=== PATIENT | female | born 1965 | race Caucasian/White ===

== ENCOUNTER → 2018-02-28 08:03 | Outpatient (POV) | payer BC, SELFPAY | PROVIDERS: Visit Provider Dentist | DX: Z00.00 Encounter for general adult medical examination without abnormal findings (principal) ==

== ENCOUNTER 2019-12-21 10:50 | Emergency (ER) | payer BC, SELFPAY ==
[2019-12-21 11:05] VITALS: BP 149/90; PULSE 76; RESP 20; TEMP 36.3; O2SAT 97; BMI 31.3
--- NOTE | 2019-12-21 11:18 | CT_ITS ---
PROCEDURE: CT ABDOMEN PELVIS WO CON CLINICAL INDICATION: RT FLANK PAIN Right flank pain with nausea COMPARISON: No exams were available for comparison TECHNIQUE: Axial images obtained with sagittal and coronal reformats. All CT scans at the facility use one or more dose reduction, viz: automated exposure control, ma/kV adjustment per patient size (including targeted exams where dose is matched to indication, i.e. head), or iterative reconstruction technique. FINDINGS: LOWER THORAX: No acute finding ABDOMEN & PELVIS: Prior cholecystectomy. There is a small hiatal hernia. The liver, adrenal glands, pancreas, and kidneys have an unremarkable unenhanced appearance. There is mild splenomegaly at 14 cm. No evidence of appendicitis, intestinal obstruction, or free air. There are few scattered colonic diverticula but no evidence of diverticulitis. There is a complex septated cystic left adnexal mass at 4.5 cm. No cul-de-sac fluid. There is mild wedging of T10 and T12 which may be chronic. There is 5 mm anterolisthesis of L4 on L5 and there is suspected old fracture of the coccyx. There are degenerative changes of the lumbar spine IMPRESSION: 1. No evidence of appendicitis. 2. No renal or ureteral calculi 3. 4.5 cm complex cystic left adnexal mass. Complex left ovarian cyst versus neoplasm is considered. Please see pelvic ultrasound for further description. Dictated by: Noel Lutz MD 12/22/2019 06:14 Electronically signed by Noel Lutz MD in [place] 12/22/2019 06:14
[2019-12-21 11:23] LABS: Microscopic, Urine URINE MICROSCOPIC (MICROSCOPIC)
[2019-12-21 11:24] LABS: Basophils % 0.4 % (0.1-2.0); Eosinophils # 0.1 K/mm3 (0.0-0.4); Eosinophils % 1.7 % (0.1-12.0); Hematocrit 43.3 % (37.0-47.0); Hemoglobin 14.7 g/dL (12.2-16.2); Lymphocytes # 1.4 K/mm3 (0.7-4.5); Lymphocytes % 20.3 % (10-50); Mean Corpuscular HGB Conc 33.9 g/dL (31.8-35.4); Mean Corpuscular Hemoglobin 30.1 pg (27.0-31.2); Mean Corpuscular Volume 88.7 fl (81-99); Mean Platelet Volume 7.6 fl (7.4-10.4); Monocytes # 0.2 K/mm3 (0.1-1.0); Monocytes % 3.4 % (1.7-9.3); Neutrophils # 5.1 K/mm3 (1.8-7.8); Neutrophils % 74.1 % (37.0-80.0); Platelet Count 276 K/mm3 (142-424); Red Blood Count 4.88 M/mm3 (4.20-5.40); Red Cell Distribution Width 12.5 % (11.5-17.5); White Blood Count 6.9 K/mm3 (4.8-10.8)
[2019-12-21 11:25] LABS: Appearance,Urine CLEAR (Clear); Bilirubin,Urine Negative (Negative); Blood, Urine TRACE-I (Negative); Color,Urine YELLOW (Yellow); Glucose,Urine (UA) Negative (Negative); Ketones,Urine Negative (Negative); Leukocyte Esterase,Urine Negative (Negative); Nitrate,Urine Negative (Negative); PH,Urine 5.5 (5.0-8.5); Protein,Urine Negative (Negative); Urobilinogen,Urine 0.2 EU/dl (0.2)
[2019-12-21 11:29] LABS: Chloride 106 mmol/L (98-107)
[2019-12-21 11:29] LABS: Urine Pregnancy, HCG Qual. Negative (Negative)
[2019-12-21 11:30] LABS: Potassium 3.8 mmoL/L (3.5-5.1); Sodium 142 mmol/L (136-145)
[2019-12-21 11:32] LABS: Alanine Aminotransferase 28 U/L (12-78); Amylase 82 U/L (30-110); Anion Gap 13.8 mEq/L (5-15); Aspartate Amino Transferase 35 U/L (14-36); Blood Urea Nitrogen 12 mg/dl (7-17); Carbon Dioxide 26 mmol/L (22.0-30.0); Creatinine Clearance Estimated 91 mL/min (50-200); Estimated Glomerular Filt Rate 58 ml/min (>60); GFR (African American) 70 ML/MIN (>60)
[2019-12-21 11:33] LABS: Albumin Level 4.7 g/dl (3.5-5.0); Albumin/Globulin Ratio 1.4 (1.1-1.8); Alkaline Phosphatase 85 U/L (38-126); Bilirubin,Total 0.9 mg/dl (0.2-1.3); Calcium 9.5 mg/dl (8.4-10.2); Globulin 3.3 g/dL (1.3-3.2); Glucose 124 mg/dl (74-100); Lipase 126 U/L (23-300)
[2019-12-21 11:38] LABS: Amorphous Sediment,Urine 1+ /lpf; Squamous Epithelial Cell,Urine Occasional #/hpf (0-5); WBC,Urine Occasional #/hpf (0-3)
--- NOTE | 2019-12-21 12:08 | HMH.EDABDPAI ---
ED Disposition Clinical Impression: Abdominal pain, Ovarian cyst Disposition: Home, Self-Care Condition on Discharge: Good Instructions: DI for Acute Abdomen Additional Instructions: Please follow-up with RN OFFICE for evaluation of the left ovarian cystic structure Referrals: Provider,Referral, [Primary Care Provider] - - Critical Care Critical Care Time: No Attestation: On 12/21/19, the high probability of a clinically significant, sudden or life threatening deterioration of the following system(s) required my full and direct attention, intervention and personal management. The time I documented below is in addition to time spent performing reported procedures but includes the following listed in this critical care notation. Medical Decision Making - Medical Records Medical records reviewed: Yes: I reviewed the patient's medical records. - Yaya Inquiry Pt receiving controlled substance: No Vital Signs: 12/21/19 11:05 Temperature 97.4 F L Temperature Source Oral Pulse Rate [Right Radial] 76 Respiratory Rate 20 Blood Pressure [Right Arm] 149/90 H Blood Pressure Mean [Right Arm] 109 Blood Pressure Source [Right Arm] Automatic Cuff Blood Pressure Position [Right Arm] Sitting 02 Sat by Pulse Oximetry 97 Oxygen Delivery Method Room Air - Lab Data Lab results reviewed: Yes: I reviewed the patient's lab results. Lab Results 12/21/19 11:05: Urine Color Yellow, Urine Appearance Clear, Urine pH 5.5, Ur Specific [place] 1.020, Urine Protein Negative, Urine Glucose (UA) Negative, Urine Ketones Negative, Urine Blood Trace-i, Urine Nitrate Negative, Urine Bilirubin Negative, Urine Urobilinogen 0.2, Ur Leukocyte Esterase Negative, Urine RBC 3-5, Urine WBC Occasional, Ur Squamous Epith Cells Occasional, Ur Transition Epith Cell 3-5, Amorphous Sediment 1+, Urine Bacteria None 12/21/19 11:05: Urine HCG, Qual Negative 12/21/19 11:16: WBC 6.9, RBC 4.88, Hgb 14.7, Hct 43.3, MCV 88.7, MCH 30.1, MCHC 33.9, RDW 12.5, Plt Count 276, MPV 7.6, Neut % (Auto) 74.1, Lymph % (Auto) 20.3, [place] % (Auto) 3.4, Eos % (Auto) 1.7, Baso % (Auto) 0.4, Neut # (Auto) 5.1, Lymph # (Auto) 1.4, [place] # (Auto) 0.2, Eos # (Auto) 0.1, Baso # (Auto) 0.0 12/21/19 11:16: Sodium 142, Potassium 3.8, Chloride 106, Carbon Dioxide 26, Anion Gap 13.8, BUN 12, Creatinine 1.00, Estimated Creat Clear 91, Estimated GFR 58 L, Est GFR ( Amer) 70, Glucose 124 H, Calcium 9.5, Total Bilirubin 0.9, AST 35, ALT 28, Alkaline Phosphatase 85, Total Protein 8.0, Albumin 4.7, Globulin 3.3 H, Albumin/Globulin Ratio 1.4, Amylase 82, Lipase 126 Result diagrams: 12/21/19 11:16 12/21/19 11:16 Orders (Tests/Meds): ED MEDICATIONS Discontinued Medications Generic Name Dose Route Start Last Admin Trade Name Freq PRN Reason Stop Dose Admin Sodium Chloride 1,000 mls @ 999 mls/hr 12/21/19 11:18 12/21/19 11:20 Sod Chlor 0.9% 1000ml Bag IV 12/21/19 12:18 999 mls/hr .Q1H1M ONE Administration Ketorolac Tromethamine 30 mg 12/21/19 11:18 12/21/19 11:20 Toradol 30mg/Ml Vial IV 12/21/19 11:19 30 mg ONCE ONE Administration Ondansetron HCl 4 mg 12/21/19 11:18 12/21/19 11:20 Zofran 4mg/2ml Vial IV 12/21/19 11:19 4 mg ONCE ONE Administration ORDERS Category Date Time Status CT abdomen pelvis wo con Stat Cat Scan 12/21/19 11:18 Taken US transvaginal Stat Exams 12/21/19 13:08 Taken - CT Data CT Scan: Abdomen, Pelvis Time Received: 14:[address] Reviewed: Yes: I have reviewed the patient's CT results, I have viewed the radiologist's interpretation Preliminary Findings: Abnormal (Patient has an ovarian mass on the left it could be a cyst could be torsion or could be neoplastic) - US Data US Images: Pelvis ED US Reviewed: Yes: I have viewed radiologist's interpretation Preliminary Findings: Normal/NAD (Patient has no fluid in the cul-de-sac patient does have an enlarged ovary on the left no evidence of torsion) Abdominal Pain HPI
--- NOTE | 2019-12-21 13:08 | US_ITS ---
PROCEDURE: US TRANSVAGINAL CLINICAL INDICATION: pain Right lower quadrant pain, septated cystic mass seen on recent CT scan, COMPARISON: CT ABDOMEN PELVIS WO CON from 12/21/2019 FINDINGS: The uterus is anteverted and measures 5 x 3 x 4 cm with a combined endometrial thickness of 5 mm. There is a nabothian cyst which measures 9 x 7 mm. The There is a complex septated cystic mass in the left adnexal region measuring 5 x 3.5 cm containing multiple septations with some thickening of the septations and internal areas of slight increased echogenicity. Blood flow is present. No cul-de-sac fluid apparent. The right ovary is unremarkable at 1.5 cm. IMPRESSION: Complex cystic lesion left adnexal area consistent with complex cystic involvement of the left ovary. There is blood flow present. Differential diagnosis includes neoplasm versus complex ovarian cyst. Consider nonemergent MRI without and with contrast for further evaluation. Dictated by: Noel Lutz MD 12/22/2019 06:02 Electronically signed by Noel Lutz MD in [place] 12/22/2019 06:02
--- NOTE | 2019-12-21 13:23 | PC.NURSE ---
Pt to US
[2019-12-21 14:52] VITALS: BP 120/85; PULSE 80; RESP 20; TEMP 36.8; O2SAT 98
== END 2019-12-21 14:53 | disposition home or self-care (01) ==
PROVIDERS: Emergency Provider Family Medicine
DX: N83.201 Unspecified ovarian cyst, right side (principal)
CPT/HCPCS: 74176; 76830; 80053; 81001; 81025; 82150; 83690; 85025; 96365; 96375; 99283; J2405

== ENCOUNTER → 2019-12-25 12:47 | Outpatient (CLI) | payer BC, SELFPAY ==
[2019-12-26 11:21] LABS: Cancer Antigen (CA) 125 19.8 U/mL (0.0-38.1)
== END ==
PROVIDERS: Visit Provider Obstetrics & Gynecology
DX: R10.9 Unspecified abdominal pain (principal); N83.209 Unspecified ovarian cyst, unspecified side
CPT/HCPCS: 36415; 86316

== ENCOUNTER → 2020-01-05 07:12 | Outpatient (CLI) | payer BC, SELFPAY ==
[2020-01-05 07:40] LABS: Blood Urea Nitrogen 22 mg/dl (7-17); Estimated Glomerular Filt Rate 74 ml/min (>60); GFR (African American) 90 ML/MIN (>60)
--- NOTE | 2020-01-05 07:49 | MR_ITS ---
PROCEDURE: MR PELVIS WO/W CON CLINICAL INDICATION: ADNEXAL MASS Adnexal mass, follow-up complex left ovarian cyst the COMPARISON: CT ABDOMEN PELVIS WO CON from 12/21/2019 US TRANSVAGINAL from 12/21/2019 TECHNIQUE: Routine multiplanar multi echo sequences are performed without and with gadolinium enhancement. FINDINGS: There is a multi-septated cystic left adnexal mass which measures 4.7 cm cephalad caudad, 4.4 cm transverse, and 3.8 cm AP. This contains multiple thin septations with some enhancement of the septations. There is some nodularity noted in the mid aspect of this lesion without significant enhancement. No obvious fat within the lesion. The no obvious hemorrhagic components. The right adnexa has an unremarkable appearance. No obvious ascites or adenopathy. IMPRESSION: 4.7 x 4.4 cm complex cystic lesion of the left ovary containing multiple septations with some minimal enhancement of the septations. Differential diagnosis would include complex benign ovarian cyst, ovarian cystadenoma the or cystadenofibroma. Cystadenocarcinoma is included in the differential diagnosis. Cystic metastasis to the ovary is also consideration. Gynecological consult is suggested.. Dictated by: Noel Lutz MD 01/06/2020 10:20 Electronically signed by Noel Lutz MD in [facility] 01/06/2020 10:20
--- NOTE | 2020-01-05 07:49 | MR_ITS ---
PROCEDURE: MR THORACIC SPINE WO CON CLINICAL INDICATION: WEDGE COMPRESSION FX T9-T10 Severe mid back pain COMPARISON: CT ABDOMEN PELVIS WO CON from 12/21/2019 TECHNIQUE: Routine multiplanar multi echo sequences are performed without gadolinium enhancement. FINDINGS: There is normal alignment. There is mild dextroscoliosis of the thoracic spine. There is mild degenerative disc disease at T7-T8-T8-T9 T9-T10 and T10-T11. There is minimal wedge compression changes involving the T9 vertebral body with loss of height anteriorly of approximately 15 percent. A Schmorl's node is present in the superior endplate of T9 vertebral body. These findings appear chronic. No retropulsion. Minimal wedging also noted at T11 which appears chronic with a Schmorl's node along the superior endplate without retropulsion. There is a small T2 hyperintensity involving the left aspect of the T8 vertebral body at 4 mm nonspecific. No disc herniation or bony destructive process. No canal stenosis. No paraspinal mass IMPRESSION: 1. Mild chronic wedge compression changes at T9 and T11 with mild thoracic spondylosis. 2. Mild dextroscoliosis of the midthoracic spine. 3. No acute finding. Dictated by: Noel Lutz MD 01/06/2020 09:48 Electronically signed by Noel Lutz MD in [facility] 01/06/2020 09:48
== END ==
PROVIDERS: PCP Internal Medicine Adolescent Medicine; Visit Provider Internal Medicine Adolescent Medicine
DX: S22.070A Wedge compression fracture of T9-T10 vertebra, initial encounter for closed fracture (principal); N94.89 Other specified conditions associated with female genital organs and menstrual cycle
CPT/HCPCS: 36415; 72146; 72197; 82565; 84520; A9576

== ENCOUNTER 2020-01-22 09:00 | Outpatient (RCR) | payer BC, SELFPAY ==
--- NOTE | 2020-01-08 14:48 | HMH.PTOPEV ---
PT Outpatient Evaluation Rehab PT Outpatient Evaluation Start: 01/08/20 14:04 Freq: Status: Active Protocol: Document 01/08/20 14:39 PHOALEXEY (Rec: 01/08/20 14:48 PHORNE [id number]) Electronically Signed By Kristopher Hale, PT 01/08/20 14:39 Outpatient Therapy Subjective History Subjective History Pt is 54 yowf who presents with c/o mid-back pain x ~ 1-2 mos with insidious onset of symptoms. She reports pain was intense burning only on the R flank. She reports meds have greatly decreased her symptoms , but she continues to have some pain intermittently. MRI showed mild wedging of T9 and T11 vertebrae. Incidental finding of R ovarian cyst noted, Pt states, That's not causing any of my pain. Chief Complaint Pain Symptom Type Burning Symptoms Relieved By Prescription Meds Symptoms Aggravated By Standing,Walking Prior Functional Limitations None Current Functional Limitations Sleeping,Standing,Walking Symptom Description Intermittent Level of pain today (0-10) 0 Pain scale - at its worst (0-10) 6 Lumbopelvic Eval Palapation tenderness right thoracic spinal tenderness Yes: 2/4 paraspinal tenderness Yes: 2/4 Accessory Movement T-spine Vertebrae Accessory Movements Central P/A Ramsey,Right P/A that Elicit Symptoms Ramsey T10 right T11 right T12 right Range of Motion Lumbar Spine ROM Reason Not Measured Within Functional Limits Manual Muscle Test Bilateral Knee Extension Strength Grade 5 Normal Knee Flexion Strength Grade 5 Normal Hip Flexion Strength Grade 5 Normal Hip Abduction Strength Grade 5 Normal Hip Adduction Strength Grade 5 Normal Extensor Hallucis Longus Strength Grade 5 Normal Ankle Dorsiflexion Strength Grade 5 Normal Gastronemius/Soleus Strength Grade 5 Normal Special Tests Hip Scouring (Quadrant) Test Negative Left,Negative Right Hip Murray (VEENA) Test Negative Left,Negative Right Sciatic Nerve Tension Test Negative Left,Negative Right Outpatient Therapy Assessment Impairments Problems/Impairmments Palpation Tenderness,Impaired Walking,Impaired Standing, Subjective C/O Pain,Impaired Self Care/Self Management Prognosis Rehab Potential Good Clinical Impression Consistent w
== END 2020-01-22 09:05 | disposition home or self-care (01) ==
LOC: PT 09:00
PROVIDERS: PCP Internal Medicine Adolescent Medicine; Visit Provider Internal Medicine Adolescent Medicine
DX: M54.14 Radiculopathy, thoracic region (principal)
CPT/HCPCS: 97010; 97014; 97110; 97140; 97163; 97530; G0283

== ENCOUNTER → 2020-06-04 13:17 | Outpatient (CLI) | payer BC, SELFPAY ==
[2020-06-04 13:47] LABS: Basophils % 0.7 % (0.1-2.0); Eosinophils # 0.1 K/mm3 (0.0-0.4); Eosinophils % 1.7 % (0.1-12.0); Hematocrit 45.4 % (37.0-47.0); Hemoglobin 14.4 g/dL (12.2-16.2); Lymphocytes # 1.7 K/mm3 (0.7-4.5); Lymphocytes % 28.1 % (10-50); Mean Corpuscular HGB Conc 31.8 g/dL (31.8-35.4); Mean Corpuscular Hemoglobin 29.2 pg (27.0-31.2); Mean Corpuscular Volume 91.6 fl (81-99); Mean Platelet Volume 7.1 fl (7.4-10.4); Monocytes # 0.3 K/mm3 (0.1-1.0); Monocytes % 4.3 % (1.7-9.3); Neutrophils # 3.9 K/mm3 (1.8-7.8); Neutrophils % 65.3 % (37.0-80.0); Platelet Count 241 K/mm3 (142-424); Red Blood Count 4.95 M/mm3 (4.20-5.40); Red Cell Distribution Width 12.5 % (11.5-17.5)
[2020-06-04 14:41] LABS: Hemoglobin A1C 5.4 % (4.0-6.0)
[2020-06-04 15:50] LABS: Alanine Aminotransferase 22 U/L (12-78); Albumin Level 4.4 g/dl (3.5-5.0); Albumin/Globulin Ratio 1.4 (1.1-1.8); Alkaline Phosphatase 102 U/L (38-126); Anion Gap 10.5 mEq/L (5-15); Aspartate Amino Transferase 31 U/L (14-36); Bilirubin,Total 0.6 mg/dl (0.2-1.3); Blood Urea Nitrogen 9 mg/dl (7-17); Calcium 9.4 mg/dl (8.4-10.2); Carbon Dioxide 30 mmol/L (22.0-30.0); Chloride 104 mmol/L (98-107); Chol/HDL Ratio 4.2 (1-3.5); Cholesterol 190 mg/dl (140-200); Estimated Glomerular Filt Rate 65 ml/min (>60); GFR (African American) 78 ML/MIN (>60); Globulin 3.1 g/dL (1.3-3.2); Glucose 91 mg/dl (74-100); HDL Cholesterol 45 mg/dl (40-60); Potassium 4.5 mmoL/L (3.5-5.1); Sodium 140 mmol/L (136-145); Total Protein,Serum 7.5 g/dl (6.3-8.2); Triglycerides 161 mg/dl (30-150); VLDL Cholesterol 32 mg/dL (0-40)
[2020-06-04 16:01] LABS: Direct LDL Cholesterol 115.69 mg/dL (100-129)
[2020-06-04 16:07] LABS: 25-OH Vitamin D, Total 35.8 ng/mL (30-100)
== END ==
PROVIDERS: Visit Provider Internal Medicine Adolescent Medicine
DX: I10 Essential (primary) hypertension (principal); E55.9 Vitamin D deficiency, unspecified
CPT/HCPCS: 36415; 80053; 80061; 82306; 83036; 85025

== ENCOUNTER → 2020-06-07 09:08 | Outpatient (CLI) | payer BC, SELFPAY ==
--- NOTE | 2020-06-07 09:37 | MM_ITS ---
PROCEDURE: MM DIG SCREENING MAMM BI W/CAD Digital Breast Tomosynthesis Included CLINICAL INDICATION: Routine Screening Mammogram There is a history of breast cancer in the patient's 2 maternal cousins 1 diagnosed before menopause the other diagnosed after menopause. COMPARISON: Outside digital mammograms 07/12/2015 and 03/09/2014 TECHNIQUE: Standard MLO and CC views were obtained along with armaan synthesis views and CAD FINDINGS: Scattered fibroglandular densities are seen in both breasts. There is stable asymmetric glandular elements upper-outer quadrant right breast basically unchanged in appearance from previous studies 2013 and 2014. There is a stable tiny nodular density near the axillary tail left breast. There is no suspicious lesion and no suspicious microcalcifications. IMPRESSION: Fibrofatty parenchyma with no suspicious lesions seen BI-RAD Category: 2 Benign Finding(s) FOLLOW-UP: 1YR 1 Year Follow-up (A letter has been sent to the patient regarding results of the study.) Dictated by: Dr. Martin Hurley MD 06/12/2020 16:57 Dr. Martin Hurley MD in [place] 06/12/2020 16:57
== END ==
PROVIDERS: PCP Internal Medicine Adolescent Medicine; Visit Provider Obstetrics & Gynecology
DX: Z12.31 Encounter for screening mammogram for malignant neoplasm of breast (principal)
CPT/HCPCS: 77063; 77067

== ENCOUNTER → 2020-07-09 12:51 | Outpatient (CLI) | payer BC, SELFPAY ==
--- NOTE | 2020-07-09 12:51 | US_ITS ---
PROCEDURE: US TRANSVAGINAL CLINICAL INDICATION: 6 mo f/u- left ovarian mass COMPARISON: CT CT ABDOMEN PELVIS WO CON from 12/21/2019 US US TRANSVAGINAL from 12/21/2019 MR MR PELVIS WO/W CON from 01/05/2020 FINDINGS: UTERUS: 5cm x 4cmx 3cm with a combined endometrial thickness of 1.3mm LEFT OVARY: [id number] with a volume of 33.6ml. RIGHT OVARY: [id number] with a volume of 2ml. There is a 1 cm nabothian cyst Complex cystic involvement once again noted involving the left ovary which is enlarged measuring 5 3 4 cm. Multiple septations are present some of which are slightly thickened. No ascites is apparent. Right ovary has an unremarkable appearance. Blood flow is to both ovaries. IMPRESSION: Complex cystic left ovarian mass multiple septations and some thickening of the wall. Overall, the size is not significantly changed. There may be some increase in thickening/solid component inferiorly. Cystadenoma or cystadenocarcinoma is considered. Dictated by: Noel Lutz MD 07/09/2020 17:15 Noel Lutz MD in [place] 07/09/2020 17:15
== END ==
PROVIDERS: PCP Internal Medicine Adolescent Medicine; Visit Provider Obstetrics & Gynecology
DX: N83.202 Unspecified ovarian cyst, left side (principal)
CPT/HCPCS: 76830

== ENCOUNTER → 2020-09-07 17:15 | Outpatient (CLI) | payer BC, SELFPAY ==
--- NOTE | 2020-09-07 | XR_ITS ---
PROCEDURE: XR LUMBAR SPINE MIN 4V CLINICAL INDICATION: Pain COMPARISON: CT CT ABDOMEN PELVIS WO CON from 12/21/2019 FINDINGS: Normal alignment. No fracture or dislocation. There is mild degenerative disc disease at L3-L4 L4-5 and L5-S1. There is 7 mm anterolisthesis of L4 on. Mild facet arthritic changes are present at L4-L5 and S1. Facet hypertrophy noted at these levels with sclerosis. Other findings:None. IMPRESSION: Degenerative disc disease with facet arthritic change Dictated by: Noel Lutz MD 09/08/2020 06:51 Noel Lutz MD in [place] 09/08/2020 06:51
--- NOTE | 2020-09-07 | XR_ITS ---
PROCEDURE: XR THORACIC SPINE 3V CLINICAL INDICATION: Pain COMPARISON: MR MR THORACIC SPINE WO CON from 01/05/2020 FINDINGS: No fracture or dislocation. No lytic or blastic change. There is normal mineralization. There is mild midthoracic scoliosis convex right. Degenerative disc disease is present in the midthoracic spine with lateral osteophytes at T8, T9, and T10 Other findings:None. IMPRESSION: Degenerative changes, no acute finding. Dictated by: Noel Lutz MD 09/08/2020 06:53 Noel Lutz MD in [place] 09/08/2020 06:53
== END ==
PROVIDERS: PCP Internal Medicine Adolescent Medicine; Visit Provider Internal Medicine Adolescent Medicine
DX: M54.42 Lumbago with sciatica, left side (principal); M54.6 Pain in thoracic spine
CPT/HCPCS: 72072; 72110

== ENCOUNTER 2020-10-18 16:00 | Outpatient (RCR) | payer BC, SELFPAY ==
--- NOTE | 2020-09-20 16:54 | HMH.PTOPEV ---
PT Outpatient Evaluation Rehab PT Outpatient Evaluation Start: 09/20/20 16:16 Freq: Status: Active Protocol: Document 09/20/20 16:16 RADHASHAWN (Rec: 09/20/20 16:54 FABY [id number]) Electronically Signed By Ede Diaz PT 09/20/20 16:16 Outpatient Therapy Subjective History Subjective History This is the initial Physical Therapy evaluation for Samantha Dominique. Pt is a 55 y/o female referred to PT for c/o LBP and LLE pain and paresthesia. Pt reports in March of 2020 she was stepping down steps, when she steppeddown she rolled her ankle. Pt reports she fell landing on her L side . Pt reports she was more concerned w/ her ankle at that time. Pt reports ~ 1 week after fall she was still having LLE and LBP pain. Pt reprots she just felt it was soreness from the fall and it would get better. Pt reports pain has not gotten better. Pt reports pain travels from L Lumbar area, into L buttocks, L lateral thigh, crosses front of knee and travels into big toe on L. Chief Complaint Pain,Stiff,Paresthesia Symptom Type Ache,Throb,Dull,Burning Symptoms Relieved By Prescription Meds Symptoms Aggravated By Sitting,Physical Activity Prior Functional Limitations None Current Functional Limitations Housework,Driving,Sleeping, Sitting,Recreation Activity, Walking Symptom Description Constant but Variable Level of pain today (0-10) 2 Pain scale - at its best (0-10) 2 Pain scale - at its worst (0-10) 7 Lumbopelvic Eval Palapation tenderness left thoracic spinal tenderness No lumbar spinal tenderness Yes paraspinal tenderness Yes buttock tenderness Yes tenderness over symphysis pubis No Lumbar/Sacral Palpation Findings Tenderness Accessory Movement L4 left L5 left Range of Motion Lumbar Spine Active Flexion Range of 80 Motion (degrees) Lumbar Spine Active Extension Range of 30 Motion (degrees) Left Lumbar Spine Lateral Flexion Active 35 Range of Motion (degrees)
== END 2020-10-18 16:05 | disposition home or self-care (01) ==
LOC: PT 16:00
PROVIDERS: PCP Internal Medicine Adolescent Medicine; Visit Provider Internal Medicine Adolescent Medicine
DX: M54.42 Lumbago with sciatica, left side (principal)
CPT/HCPCS: 97010; 97012; 97014; 97110; 97140; 97163; G0283

== ENCOUNTER → 2021-07-18 11:26 | Outpatient (CLI) | payer BC, SELFPAY ==
--- NOTE | 2021-07-20 11:13 | PC.NURSE ---
notified pt of positive COVID test results at this time
== END ==
PROVIDERS: PCP Internal Medicine Adolescent Medicine; Visit Provider Nurse Practitioner
DX: U07.1 COVID-19 (principal)
CPT/HCPCS: C9803; U0003; U0005

== ENCOUNTER → 2022-04-25 10:10 | Outpatient (CLI) | payer BC, SELFPAY ==
[2022-04-25 11:15] LABS: Alanine Aminotransferase 18 U/L (12-78); Albumin Level 4.1 g/dl (3.5-5.0); Albumin/Globulin Ratio 1.5 (1.1-1.8); Alkaline Phosphatase 109 U/L (38-126); Anion Gap 8.3 mEq/L (5-15); Aspartate Amino Transferase 27 U/L (14-36); Blood Urea Nitrogen 10 mg/dl (7-17); Calcium 9.6 mg/dl (8.4-10.2); Carbon Dioxide 31 mmol/L (22.0-30.0); Chloride 106 mmol/L (98-107); Estimated Glomerular Filt Rate 64 ml/min (>60); GFR (African American) 78 ML/MIN (>60); Globulin 2.8 g/dL (1.3-3.2); Glucose 100 mg/dl (74-100); Potassium 4.3 mmoL/L (3.5-5.1); Sodium 141 mmol/L (136-145); Total Protein,Serum 6.9 g/dl (6.3-8.2)
[2022-04-25 11:17] LABS: Bilirubin,Total 0.1 mg/dl (0.2-1.3)
[2022-04-25 11:32] LABS: 25-OH Vitamin D, Total 35.9 ng/mL (30-100)
== END ==
PROVIDERS: PCP Internal Medicine Adolescent Medicine; Visit Provider Internal Medicine Adolescent Medicine
DX: I10 Essential (primary) hypertension (principal); K29.60 Other gastritis without bleeding; E55.9 Vitamin D deficiency, unspecified
CPT/HCPCS: 36415; 80053; 82306

== ENCOUNTER → 2022-04-26 07:31 | Outpatient (CLI) | payer BC, SELFPAY ==
[2022-04-28 15:16] LABS: H. pylori Stool Ag, EIA Negative (Negative)
== END ==
PROVIDERS: PCP Internal Medicine Adolescent Medicine; Visit Provider Internal Medicine Adolescent Medicine
DX: I10 Essential (primary) hypertension (principal); K29.60 Other gastritis without bleeding; E55.9 Vitamin D deficiency, unspecified
CPT/HCPCS: 87338

== ENCOUNTER → 2022-05-01 07:47 | Outpatient (CLI) | payer BC, SELFPAY ==
--- NOTE | 2022-05-01 07:48 | MM_ITS ---
PROCEDURE INFORMATION: Exam: MG Bilateral Screening 3D Mammography Exam date and time: 05/01/2022 7:53 AM Age: 57 years old Clinical indication: Screening mammogram TECHNIQUE: Imaging protocol: Bilateral Screening tomosynthesis and 2D mammography including computer-aided detection (CAD) when performed. COMPARISON: 1. MG MM DIG SCREENING MAMM BI W/CAD 06/07/2020 9:35 AM 2. MG MAMMOGRAM SCREENING 07/12/2015 8:48 AM FINDINGS: MAMMOGRAPHY: Breast composition: There are scattered areas of fibroglandular density. Mass: None. Architectural distortion: No new or suspicious architectural distortion. Calcifications: No new or suspicious calcifications are present Asymmetric density: No new or suspicious asymmetric density is present Skin thickening: None. Axillary adenopathy: None. IMPRESSION: No mammographic evidence of malignancy. Recommend annual screening mammography unless otherwise clinically indicated. ASSESSMENT: BI-RADS category 1: Negative
== END ==
PROVIDERS: PCP Internal Medicine Adolescent Medicine; Visit Provider Obstetrics & Gynecology
DX: Z12.31 Encounter for screening mammogram for malignant neoplasm of breast (principal)
CPT/HCPCS: 77063; 77067

== ENCOUNTER 2023-09-05 08:04 | Outpatient (CLI) | payer BC, SELFPAY ==
--- NOTE | 2023-09-05 08:09 | MM_ITS ---
PROCEDURE INFORMATION: Exam: MG Bilateral Screening 3D Mammography Exam date and time: 09/05/2023 8:00 AM Age: 58 years old Clinical indication: Screening mammogram TECHNIQUE: Imaging protocol: Bilateral Screening tomosynthesis and 2D mammography including computer-aided detection (CAD) when performed. COMPARISON: 1. MG MM DIG SCREENING MAMM BI W/CAD 05/01/2022 7:53 AM 2. MG MM DIG SCREENING MAMM BI W/CAD 06/07/2020 9:35 AM 3. MG MAMMOGRAM SCREENING 07/12/2015 8:48 AM FINDINGS: MAMMOGRAPHY: Breast composition: There are scattered areas of fibroglandular density. Mass: None. Architectural distortion: No new or suspicious architectural distortion. Calcifications: No new or suspicious calcifications are present Asymmetric density: No new or suspicious asymmetric density is present Skin thickening: None. Axillary adenopathy: None. IMPRESSION: No mammographic evidence of malignancy. Recommend annual screening mammography unless otherwise clinically indicated. ASSESSMENT: BI-RADS category 1: Negative
== END 2023-09-05 23:59 ==
LOC: RAD 08:05
PROVIDERS: PCP Internal Medicine Adolescent Medicine; Visit Provider Internal Medicine Adolescent Medicine
DX: Z12.31 Encounter for screening mammogram for malignant neoplasm of breast (principal)
CPT/HCPCS: 77063; 77067

== ENCOUNTER 2024-01-16 14:59 | Outpatient (CLI) | payer BC, SELFPAY ==
--- NOTE | 2024-01-16 15:09 | XR_ITS ---
FINAL REPORT CLINICAL HISTORY: SCREENING FINDINGS: Using L1-4, the bone mineral density of the spine is 0.866 g/cm2, corresponding to T-score of -1.6. Using the left hip, the bone mineral density of the femoral neck is 0.742 g/cm2, corresponding to a T-score of -1.0. Using the right hip: The bone mineral density of the femoral neck is 0.770 g/cm2, corresponding to a T-score of -0.7. FRAX 10 year fracture risk is 13% for a hip fracture and 0.4% for a major osteoporotic fracture. IMPRESSION: Osteopenic bone mineral density of the lumbar spine and left hip. Normal bone mineral density of the right hip. NOTE: T-score: Standard deviation compared with peak bone mass of young adult mean. *Following the recommendations of the International Society of Bone densitometry, classification of hip BMD is based on the lower of two T-scores; total hip or femoral neck. Reviewed, Interpreted and Dictated by Preet Noel MD Transcribed by Osiris Prakash Authenticated and [facility]
== END 2024-01-16 23:59 | disposition home or self-care (01) ==
LOC: RAD 15:00
PROVIDERS: PCP Internal Medicine Adolescent Medicine; Visit Provider Internal Medicine Adolescent Medicine
DX: Z13.820 Encounter for screening for osteoporosis (principal); M85.89 Other specified disorders of bone density and structure, multiple sites
CPT/HCPCS: 77080

== ENCOUNTER 2025-05-07 07:57 | Outpatient (CLI) | payer BC, SELFPAY ==
--- NOTE | 2025-05-07 08:01 | MM_ITS ---
PROCEDURE INFORMATION: Exam: MG Bilateral Screening 3D Mammography Exam date and time: 05/07/2025 8:03 AM Age: 60 years old Clinical indication: Screening mammogram. TECHNIQUE: Imaging protocol: Bilateral Screening tomosynthesis and 2D mammography including computer-aided detection (CAD) when performed. COMPARISON: 1. MG MM DIG SCREENING MAMM BI W/CAD 09/05/2023 8:00 AM 2. MG MM DIG SCREENING MAMM BI W/CAD 05/01/2022 7:53 AM 3. MG MM DIG SCREENING MAMM BI W/CAD 06/07/2020 9:35 AM FINDINGS: MAMMOGRAPHY: Breast composition: There are scattered areas of fibroglandular density. Mass: None. Architectural distortion: No new or suspicious architectural distortion. Calcifications: No new or suspicious calcifications are present Asymmetric density: No new or suspicious asymmetric density is present Skin thickening: None. Axillary adenopathy: None. IMPRESSION: No mammographic evidence of malignancy. Recommend annual screening mammography unless otherwise clinically indicated. ASSESSMENT: BI-RADS category 1: Negative.
== END 2025-05-07 23:59 | disposition home or self-care (01) ==
LOC: RAD 07:57
PROVIDERS: PCP Internal Medicine Adolescent Medicine; Visit Provider Internal Medicine Adolescent Medicine
DX: Z12.31 Encounter for screening mammogram for malignant neoplasm of breast (principal); R92.323 Mammographic fibroglandular density, bilateral breasts
CPT/HCPCS: 77063; 77067